=== PATIENT | male | born 1960 | race Caucasian/White ===

== ENCOUNTER 2019-03-27 19:26 | Emergency (ER) | payer OTHER ==
[~2019-03-27] VITALS: Wt 100.4 kg
--- NOTE | 2019-03-28 00:42 | ERD ---
ER Documentation Chief Complaint Chief Complaint on and off nosebleeding x 2 weeks, no active nosebleeding in intake HPI 59-year-old male, previously healthy, presents the emergency department, complaining of 2 weeks with intermittent episodes of spontaneous nasal bleeding through the right nostril. The patient denies any trauma, no fever, he is not taking any anticoagulant medications. Currently, he denies headaches, no active bleeding, no dizziness. ROS All systems reviewed and are negative except as per history of present illness. Medications Home Meds Active Scripts Oxymetazoline Hcl* (Afrin [place]*) 0.05% - 15 Ml [place], 2 SPRAYS NASAL DAILY PRN for NASAL BLEEDING, #1 EA to each nostril Prov:ROBERT CHAVARRIA MD 03/28/19 Allergies Allergies: Coded Allergies: No Known Drug Allergies (Verified Allergy, Unknown, 03/27/19) PMhx/Soc Medical and Surgical Hx: pt denies Medical Hx, pt denies Surgical Hx Hx Alcohol Use: No Hx Substance Use: No Hx Tobacco Use: No Smoking Status: Never smoker FmHx Family History: No diabetes, No coronary disease Physical Exam Vitals Vital Signs Date Temp Pulse Resp B/P (MAP) Pulse Ox O2 O2 Flow FiO2 Time Delivery Rate 03/27/19 98.4 67 18 169/83 97 19:53 (111) Physical Exam Const: No acute distress Head: Atraumatic Eyes: Normal Conjunctiva ENT: Normal External Ears, Nose and Mouth. Neck: Full range of motion. No meningismus. Resp: Clear to auscultation bilaterally Cardio: Regular rate and rhythm, no murmurs Abd: Soft, non tender, non distended. Normal bowel sounds Skin: No petechiae or rashes Back: No midline or flank tenderness Ext: No cyanosis, or edema Neur: Awake and alert Psych: Normal Mood and Affect Procedures/MDM Differential diagnosis include but not limited to: trauma, vessel fragility, rhinosinusitis, neoplasm, coagulopathy. During the ED course the patient remained stable, no active bleeding, no new complaints. The patient is stable to be treated outpatient and will be discharged home with instructions to follow up in 48 hours with his primary doctor. If symptoms persist, worsen or new symptoms develop, then patient should return to the ED immediately. Instructions explained and given directly by me to the patient in [place] with acknowledgment and demonstrated understanding. Disclaimer: Inadvertent spelling and grammatical errors are likely due to EHR/dictation software use and do not reflect on the overall quality of patient care. Also, please note that the electronic time recorded on this note does not necessarily reflect the actual time of the patient encounter. Departure Diagnosis: Primary Impression: Epistaxis Condition: Stable Patient Instructions: Epistaxis (Adult) Additional Instructions: Muchas jaleel por [facility] para cain servicio. Esperamos que en cain visita a la jodi de emergencia cain problema medico haya sido solucionado y que se sienta mucho mejor. Para estar seguros que cain mejoria sigue en proceso, le pedimos el favor de hacer sergio trina de seguimiento medico con cain doctor primario en los proximos 2-4 thurman. Lleve con usted estos documentos y las medicinas recetadas. Si mayank sintomas empeoran, NO SE ESPERE, por favor regrese a jodi de emergencia INMEDIATAMENTE. En joey que usted no tenga un mdico de atencin primaria: Llame al mdico o clnica comunitaria de referencia que aparece abajo kamran las horas de consultorio para hacer sergio trina para que le vean. CLINICAS: [facility] [phone] [facility] [phone] [facility] [phone] [facility] [phone] [place] [id number] [phone] [facility]. [phone] [place] March 28, 2019 00:42
[2019-03-28] MEDS ORDERED: OXYM15SP34 NASAL (00:43)
[2019-03-28 00:54] VITALS: BP 146/86; PULSE 63; RESP 20
== END 2019-03-28 00:54 | disposition home or self-care (01) ==
LOC: FTE 19:26
DX: R04.0 Epistaxis (principal)
CPT/HCPCS: 99282